=== PATIENT | male | born 1980 | race Caucasian/White ===

== ENCOUNTER → 2020-06-04 16:19 | Outpatient (CLI) | payer BC, SELFPAY | PROVIDERS: PCP Family Medicine; Referring Provider Family Medicine; Visit Provider Family Medicine | DX: Z20.828 Contact with and (suspected) exposure to other viral communicable diseases (principal) | CPT/HCPCS: 87635; U0003 ==

== ENCOUNTER → 2023-03-01 | Outpatient (CLI) | payer BC, SELFPAY ==
[2023-03-01 15:31] LABS: Absolute Neutrophil Count 2.8 X10^3/uL (2.0-7.7); Basophil# 0.05 X10^3/uL; Basophil% 1.2 % (0-1); Eosinophil# 0.08 X10^3/uL; Eosinophils% 1.9 % (0-5); Hematocrit 46.7 % (40-54); Hemoglobin 15.7 g/dL (13.0-16.5); Lymphocyte % 23.5 % (19-41); Mean Corp Hgb Conc 33.6 g/dL (32-36); Mean Corpuscular Hgb 27.7 pg (27.0-32.0); Mean Corpuscular Volume 82.4 fL (80-94); Mean Platelet Vol. 9.8 fl (6.2-12.0); Monocyte# 0.35 X10^3/uL; Monocyte% 8.2 % (0-10); NRBC Flagged by Analyzer 0 % (0-5); Neutrophil # 2.76 X10^3/uL (2.7-7.7); Platelet Count 222 K/mm3 (150-450); RBC Distribution Width CV 12.6 % (11.6-14.6); RBC Distribution Width SD 37.5 fl (35.1-43.9); Red Blood Count 5.67 M/mm3 (4.6-6.2); White Blood Count 4.3 K/mm3 (4.4-11.0)
[2023-03-01 15:54] LABS: Hemoglobin A1c 5.3 % (3.8-5.6)
[2023-03-01 16:15] LABS: ALB/GLOB Ratio 1.3 RATIO (0.9-2.4); AST(SGOT) 21 U/L (15-37); Alanine Aminotransfer ALT/SGPT 39 U/L (16-61); Albumin, Serum 4.3 g/dL (3.2-5.0); Alkaline Phosphatase 73 U/L (45-117); Anion Gap 4 (5-15); BUN 10 mg/dL (7-18); BUN/Creat Ratio 8.4 RATIO (10-20); Calcium,Total 9.3 mg/dL (8.5-10.1); Chloride 104 mmol/L (98-107); Cholesterol 263 mg/dL (200); Creatinine, Serum 1.19 mg/dL (0.70-1.30); EST Glomerular Filtration Rate 71 mL/min (>60); Est Glom Filt Rate - Afr Amer 86 mL/min (>60); Globulin 3.3 g/dL (2.2-4.2); Glucose 97 mg/dL (74-106); High Density Lipoprotein 48 mg/dL; PSA,Total - Annual Screen 0.74 ng/mL (0.00-4.00); Potassium 4.8 mmol/L (3.5-5.1); Protein, Total 7.6 g/dL (6.4-8.2); Sodium Level 138 mmol/L (136-145); Thyroid Stim Hormone (TSH) 3.33 uIU/mL (0.358-3.74); Triglycerides 180 mg/dL; Very Low Density Lipoprotein 36 mg/dL (5-40)
== END | disposition home or self-care (01) ==
PROVIDERS: PCP Family Medicine; Referring Provider Family Medicine; Visit Provider Family Medicine
DX: Z13.0 Encounter for screening for diseases of the blood and blood-forming organs and certain disorders involving the immune mechanism (principal); N52.9 Male erectile dysfunction, unspecified; Z13.1 Encounter for screening for diabetes mellitus; Z13.29 Encounter for screening for other suspected endocrine disorder; Z13.220 Encounter for screening for lipoid disorders
CPT/HCPCS: 36415; 80053; 80061; 83036; 84153; 84443; 85025; G0103

== ENCOUNTER → 2024-03-26 | Outpatient (CLI) | payer BC, SELFPAY ==
[2024-03-26 10:28] LABS: Basophil# 0.05 X10^3/uL; Basophil% 1.4 % (0-1); Eosinophil# 0.08 X10^3/uL; Eosinophils% 2.3 % (0-5); Hematocrit 44.1 % (40-54); Hemoglobin 14.7 g/dL (13.0-16.5); Lymphocyte % 28.6 % (19-41); Mean Corp Hgb Conc 33.3 g/dL (32-36); Mean Corpuscular Hgb 27.8 pg (27.0-32.0); Mean Corpuscular Volume 83.4 fL (80-94); Mean Platelet Vol. 10.3 fl (6.2-12.0); Monocyte# 0.41 X10^3/uL; Monocyte% 11.7 % (0-10); NRBC Flagged by Analyzer 0 % (0-5); Neutrophil # 1.95 X10^3/uL (2.7-7.7); Neutrophil % 55.7 % (47-70); Platelet Count 210 K/mm3 (150-450); RBC Distribution Width CV 12.7 % (11.6-14.6); RBC Distribution Width SD 38.5 fl (35.1-43.9); Red Blood Count 5.29 M/mm3 (4.6-6.2); White Blood Count 3.5 K/mm3 (4.4-11.0)
[2024-03-26 10:56] LABS: ALB/GLOB Ratio 1.4 RATIO (0.9-2.4); AST(SGOT) 28 U/L (15-37); Alanine Aminotransfer ALT/SGPT 39 U/L (16-61); Albumin, Serum 4.2 g/dL (3.2-5.0); Alkaline Phosphatase 70 U/L (45-117); Anion Gap 4 (5-15); BUN 20 mg/dL (7-18); BUN/Creat Ratio 16.4 RATIO (10-20); Calcium,Total 9.3 mg/dL (8.5-10.1); Chloride 103 mmol/L (98-107); Cholesterol 152 mg/dL (200); Creatinine, Serum 1.22 mg/dL (0.70-1.30); EST Glomerular Filtration Rate 69 mL/min (>60); Est Glom Filt Rate - Afr Amer 83 mL/min (>60); Glucose 104 mg/dL (74-106); High Density Lipoprotein 45 mg/dL; Potassium 4.6 mmol/L (3.5-5.1); Protein, Total 7.2 g/dL (6.4-8.2); Sodium Level 136 mmol/L (136-145); Triglycerides 115 mg/dL; Very Low Density Lipoprotein 23 mg/dL (5-40)
== END | disposition home or self-care (01) ==
LOC: MTLAB 07:13
PROVIDERS: PCP Family Medicine; Referring Provider Family Medicine; Visit Provider Family Medicine
DX: Z00.00 Encounter for general adult medical examination without abnormal findings (principal); Z13.1 Encounter for screening for diabetes mellitus; Z13.220 Encounter for screening for lipoid disorders
CPT/HCPCS: 36415; 80053; 80061; 85025

== ENCOUNTER 2024-05-01 09:30 | Outpatient (RCR) | payer BC, SELFPAY ==
--- NOTE | 2024-03-23 11:20 | HP.PTEVAL ---
Patient's Visit Information Visit Information Visit Information: DAVID BURNETT is a 43 year old M referred to Physical Therapy by Meet Vaughan MD with a diagnosis of L shoulder pain. Date of Evaluation: 03/23/24 Physical Therapist: YAMIL Chaudhary Visit Plan Frequency: 2x /Week Duration: 4 Weeks Plan: 2X/ week for 4 weeks for scapular strength, postural exercises, mobs to help with anterior tightness, RC strength with HEP Stretch pec/lat, Prone ROWS, T's and Y's, ER/IR HEP: blue mid rows Subjective Subjective: It started awhile ago and it started at Triceps area and now it is on the top of the shoulder. Last Tuesday was the worst. It did not bother him too much this past week. He can lay on that side but he can feel it. He can still lift but he can feel it on all shoulder exercises. His shoulder feels tight and he has pain with all motions. He has a desk job. He has no neck pain. He is right handed. His strength is better but still not the best. Pain L shoulder pain: Pain Intensity (Out of 10): 2 Objective Objective: R handed [employer] Strength R 110# and L 80# Shoulder AROM: R shoulder flex full but pain on the L side coming back down R shoulder ABD Full AROM and L 145 MMT: R shoulder flex 11.8 and L 9.5 R shoulder ABD 11.5 and L 11.1 R ER 16 and L 19.9 R IR 14,2 and L 15.5 posterior mobs caused some anterior shoulder discomfort Palpation: tender under the L acromion and bicep groove Posture: protracted shoulders. Balance/Special Test Scores Quick DASH Score: 22.7250 Goals Goal 1:: I HEP Goal Time Frame: 8-12 Weeks Goal 2:: Increase L shoulder elevation to full ROM without pain Goal Time Frame: 8-12 Weeks Goal 3:: Sit with more retracted shoulder posture Goal Time Frame: 8-12 Weeks Goal 4:: Be able to use his L arm without pain Goal Time Frame: 8-12 Weeks Rehabilitation Potential Rehabilitation Potential: Good Anticipated Interventions Patient/Client Instruction: Educate patient on: Condition and Plan of Care For the Purpose of:: To decrease pain, To decrease swelling/inflammation, To increase ROM, To improve nutrient delivery to tissue, To improve muscle performance and motor function, To improve ability to perform ADL's, To increase tolerance to activity/condition/position, To improve performance and independence with ADL's, To improve ability of physical actions for home/community/work/leisure, To improve gait and locomotor functions, To improve health of tissue, To decrease soft tissue restriction and To increase flexibility/ROM Therapeutic Exercise to Include: Strength training, Endurance training, Postural training, Flexibilty training, Neuromotor development, Passive ROM, Active ROM and Scapular Strength/Stabilization For the Purpose of:: To decrease pain, To increase ROM, To improve nutrient delivery to tissue, To increase oxygenation perfusion, To improve muscle performance and motor function, To improve ability to perform ADL's, To increase tolerance to activity/condition/position, To improve performance and independence with ADL's, To decrease level of supervision to perform tasks, To improve ability of physical actions for home/community/work/leisure, To improve gait and locomotor functions, To improve health of tissue, To decrease soft tissue restriction, To increase flexibility/ROM and To improve endurance Manual Therapy Techniques to Include: Mobilization and Passive ROM For the Purpose of:: To decrease pain, To increase ROM, To improve nutrient delivery to tissue, To improve muscle performance and motor function, To improve ability to perform ADL's, To increase tolerance to activity/condition/position, To improve performance and independence with ADL's, To decrease level of supervision to perform tasks, To improve health of tissue, To decrease soft tissue restriction and To increase flexibility/ROM Text: Thank you for the opportunity to evaluate your patient. For Medicare and Medicare HMO plans, please review the plan of care and approve it. It will need to be FAXED BACK to us at [phone] for Medicare purposes. For Medicare only, by signing this I certify the plan of care. Please let me know if there are questions or concerns regarding this plan of care. Physician Signature: Date:
--- NOTE | 2024-05-01 09:55 | HP.PTDCSUM ---
Discharge Summary D/C summary: It has been my pleasure to treat DAVID BURNETT referred by Meet Vaughan MD, with the diagnosis of L shoulder pain for a total of 9 visit(s). Discharge Date: 05/01/24 Please see the following information for a summary of their discharge status. Subjective Subjective: Pt reports that his pain depends on movements. He wants to get the MRI so he knows what is going on. Somedays he does not have a lot of pain. Reaching behind his back is the worst and still feels it overhead. He feels like his pain was better for a little while. He has no neck pain. He sometimes has night pain when he sleeps. He is incorporating these exercises into his workout routine Pain L shoulder pain: Pain Intensity (Out of 10): 0 Overall Improvement % Improvement: 25 Objective Objective/Function: Shoulder AROM: L flexion full but pain at end range L ABD approx 165 with pain at end range WFL ER/ IR with pain at end ranges. Goals Goal 1:: I HEP Goal Progress: Goal Met Goal 2:: Increase L shoulder elevation to full ROM without pain Goal Progress: Progressing Goal 3:: Sit with more retracted shoulder posture Goal Progress: Goal Met Goal 4:: Be able to use his L arm without pain Goal Progress: Progressing Plan Plan: DC PT to home program. Recommend MRI to see what is going on. Descent ROM but pain at end range. D/C Information Discharge Comments: DC PT to HEP d/c sentence: If there are questions or concerns regarding this patient's physical therapy, please feel free to call me at [phone]. Thank you for the referral of this patient. Sincerely, Sabrina Martinez, MPT Balance/Gait/Functional tests Balance/Special Test Scores Quick DASH Score: 34.0900 Improvement % Improvement: 25
--- NOTE | 2024-05-01 09:58 | HP.PTREVAL_ITS ---
Re-Evaluation Intro: Meet Vaughan MD, It has been my pleasure to treat DAVID BURNETT over the last 9 visits for L shoulder pain. Please see the progress note below for an update on the physical therapy plan of care! Subjective Subjective: Pt reports that his pain depends on movements. He wants to get the MRI so he knows what is going on. Somedays he does not have a lot of pain. Reaching behind his back is the worst and still feels it overhead. He feels like his pain was better for a little while. He has no neck pain. He sometimes has night pain when he sleeps. He is incorporating these exercises into his workout routine Objective Objective/Function: Shoulder AROM: L flexion full but pain at end range L ABD approx 165 with pain at end range WFL ER/ IR with pain at end ranges. Plan Plan Plan: DC PT to home program. Recommend MRI to see what is going on. Descent ROM but pain at end range. Balance/Gait/Functional tests Balance/Special Test Scores Quick DASH Score: 34.0900 Goals Goals Goal 1:: I HEP Goal Time Frame: 8-12 Weeks Goal Progress: Goal Met Goal 2:: Increase L shoulder elevation to full ROM without pain Goal Time Frame: 8-12 Weeks Goal Progress: Progressing Goal 3:: Sit with more retracted shoulder posture Goal Time Frame: 8-12 Weeks Goal Progress: Goal Met Goal 4:: Be able to use his L arm without pain Goal Time Frame: 8-12 Weeks Goal Progress: Progressing Anticipated Interventions Anticipated Interventions Patient/Client Instruction: Educate patient on: Condition and Plan of Care For the Purpose of:: To decrease pain, To decrease swelling/inflammation, To increase ROM, To improve nutrient delivery to tissue, To improve muscle performance and motor function, To improve ability to perform ADL's, To increase tolerance to activity/condition/position, To improve performance and ind ependence with ADL's, To improve ability of physical actions for home/community/work/leisure, To improve gait and locomotor functions, To improve health of tissue, To decrease soft tissue restriction and To increase flexibility/ROM Therapeutic Exercise to Include: Strength training, Endurance training, Postural training, Flexibilty training, Neuromotor development, Passive ROM, Active ROM and Scapular Strength/Stabilization For the Purpose of:: To decrease pain, To increase ROM, To improve nutrient delivery to tissue, To increase oxygenation perfusion, To improve muscle performance and motor function, To improve ability to perform ADL's, To increase tolerance to activity/condition/position, To improve performance and independence with ADL's, To decrease level of supervision to perform tasks, To improve ability of physical actions for home/community/work/leisure, To improve gait and locomotor functions, To improve health of tissue, To decrease soft tissue restriction, To increase flexibility/ROM and To improve endurance Manual Therapy Techniques to Include: Mobilization and Passive ROM For the Purpose of:: To decrease pain, To increase ROM, To improve nutrient delivery to tissue, To improve muscle performance and motor function, To improve ability to perform ADL's, To increase tolerance to activity/condition/position, To improve performance and independence with ADL's, To decrease level of supervision to perform tasks, To improve health of tissue, To decrease soft tissue restriction and To increase flexibility/ROM Re-Evaluation Ending Re-evaluation ending: Please do not hesitate to contact me at [phone] by phone or if you have questions or concerns regarding this new plan of care! Sincerely, Sabrina Martinez, MPT
== END 2024-05-01 19:00 | disposition home or self-care (01) ==
LOC: PT 09:30
PROVIDERS: PCP Family Medicine; Referring Provider Family Medicine; Visit Provider Family Medicine
DX: M25.512 Pain in left shoulder (principal)
CPT/HCPCS: 97110; 97161; 97530

== ENCOUNTER → 2024-05-23 | Outpatient (CLI) | payer BC, SELFPAY ==
--- NOTE | 2024-05-23 09:50 | MRI_ITS ---
STUDY: MRI LEFT SHOULDER REASON FOR EXAM: Male, 43 years old. Pain. TECHNIQUE: Standardized fat and water weighted pulse sequences were obtained in all 3 orthogonal planes. COMPARISON: None. FINDINGS: Normal supraspinatus tendon. Normal infraspinatus tendon. Normal subscapularis tendon. Normal teres minor tendon. Normal supraspinatus muscle. Normal infraspinatus muscle. Normal subscapularis muscle. Normal teres minor muscle. Normal glenohumeral articulation. Normal humeral head and visualized proximal humerus. Normal biceps labral complex. Normal intracapsular long biceps tendon. Normal labrum. Normal capsulo-ligamentous complex. Normal rotator interval. 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 There is a Type II morphology (curved), with a neutral orientation. There is no subacromial-subdeltoid bursal fluid. Normal visualized coracohumeral and coracoacromial ligaments. Normal quadrilateral space. Normal axillary space. Normal deltoid muscle. Normal trapezius muscle. MRI/Upper Ext Joint Only(Routine) IMPRESSION: Active acromioclavicular arthrosis, with juxta-articular marrow edema and inferior osteophyte formation. No rotator cuff tear or discrete labral tear. Electronically Signed: Yunier Bustillo MD at 13:38 EDT ,
== END | disposition home or self-care (01) ==
LOC: MRI 09:49
PROVIDERS: PCP Family Medicine; Referring Provider Family Medicine; Visit Provider Family Medicine
DX: M25.512 Pain in left shoulder (principal)
CPT/HCPCS: 73221

== ENCOUNTER → 2025-03-22 | Outpatient (CLI) | payer BC, SELFPAY | END | disposition home or self-care (01) | LOC: MTLAB 13:07 | PROVIDERS: PCP Family Medicine; Referring Provider Family Medicine; Visit Provider Family Medicine | DX: Z20.2 Contact with and (suspected) exposure to infections with a predominantly sexual mode of transmission (principal) | CPT/HCPCS: 36415; 86695; 86696 ==

== ENCOUNTER → 2025-05-10 | Outpatient (CLI) | payer BC, SELFPAY ==
--- OUTSIDE RECORDS SUMMARY | 2025-05-10 06:21 | XMS RPT_ITS | CCD ---
Author Organization [facility] Care Team Providers Care Seafood And Service Meat Manager Name Role Phone Unavailable Primary Care Provider Unavailabl e Clement MICHELLE, Meet Primary Care Provider Clement MICHELLE, Meet Attending Provider Meet Vaughan MD Referring Provider Meet Vaughan Referring Unavailable Clement, Meet Attending Unavailable Clement, Chalon Primary Care Unavailable Clement, Chalon Referring Unavailable Clement, Theodoreon Attending Unavailable Clement, Chalon Primary Care Unavailable Clement, Theodoreon Referring Unavailable Clement, Theodoreon Attending Unavailable Clement, Chalon Primary Care Unavailable Clement, Chalon Referring Unavailable Omar King Attending Unavailable Clement, Chalon Primary Care Unavailable Medications Current Medications Medication Drug Class(es) Dates Sig (Normalized) Sig (Original) cyclobenzaprine hydrochloride 5 mg oral tablet (1 source) Muscle Relaxant Start: 10-20-2024 take 1 tablet by mouth three times daily as needed for muscle spasms Cyclobenzaprine 5 mg tablet Active 5 mg PO THREE TIMES A DAY as needed for muscle spasm 10 0 October 20, 2024 12:00am ibuprofen 600 mg oral tablet (2 sources) Nonsteroidal Anti-inflammatory Drug Start: 02-03-2014 take 1 tablet by mouth every six hours as needed ibuprofen 600 mg tablet Take 1 tablet by mouth every 6 hours as needed for Pain. 30 tablet 0 02/03/2014 Active omeprazole 10 mg delayed release oral capsule (1 source) Proton Pump Inhibitor Start: 06-25-2023 take 1 capsule by mouth once daily Omeprazole 10 mg capsule,delayed release(DR/EC) Active 10 mg PO DAILY June 25, 2023 1:00am pantoprazole 20 mg delayed release oral tablet (2 sources) Proton Pump Inhibitor take 1 tablet by mouth once daily pantoprazole 20 mg tablet Take 20 mg by mouth once daily. Active rosuvastatin calcium 10 mg oral tablet (1 source) HMG-CoA Reductase Inhibitor Start: 06-25-2023 take 1 tablet by mouth once daily Rosuvastatin (Crestor) 10 mg tablet Active 10 mg PO DAILY June 25, 2023 1:00am Completed/Discontinued Medications Medication Drug Class(es) Dates Sig (Normalized) Sig (Original) amoxicillin 500 mg oral capsule (1 source) Penicillin-class Antibacterial Start: 06-25-2023 End: 07-05-2023 take 1 capsule by mouth three times daily Amoxicillin 500 mg capsule Discontinued 500 mg PO THREE TIMES A DAY 30 10 0 June 25, 2023 1:00am July 04, 2023 1:00am July 05, 2023 1:05am Problems Active Problems Problem Classification Problem Date Documented Da te Episodic/Chronic Disorders of teeth and jaw (2 sources) Gingival disease; Translations: [Other specified disorders of gingiva and edentulous alveolar ridge] 06-25-2023 Episodic Immunizations and screening for infectious disease (4 sources) Patient encounter status; Translations: [Encounter for immunization] Onset: 03-28-2025 04-19-2024 Episodic Past or Other Problems Problem Classification Problem Date Documented Da te Episodic/Chronic Other non-traumatic joint disorders (1 source) Pain in left shoulder; Translations: [Pain in left shoulder] Onset: 06-14-2024 Episodic Results Test Name Value Interpretation Reference Range Facility [facility] 04-19-2025 CNOV Office Visit (PEDSWS ) DAVID BURNETT ([id number]) 1980 M Date Time Provider Department 04/19/25 4:00 PM NURSE EVER MASON During your visit today, we recorded the following information about you: Allergies As of Date: 04/19/2025 (No Known Allergies) Date Reviewed: 02/03/2014 Reviewed by: Randa Preston Ma - Fully Assessed Reason for Visit: Immunizations [194] Cmt: Flu vaccination Primary Visit Diagnosis:Need for influenza vaccination [Z23] Order(s):INFLUENZA VACCINE, PRSV FREE, AGE 6MO-64YR, TRIVALENT (AFLURIA, FLUARIX, FLULAVAL, FLUVIRIN, FLUZONE) [20457YNX] Order #: [id number] Prescriptions as of 04/19/2025 - pantoprazole 20 mg tablet Take 20 mg by mouth once daily. - ibuprofen 600 mg tablet Take 1 tablet by mouth every 6 hours as needed for Pain. Problem List As Of Date: 04/19/2025 (None) Encounter Status:Closed by BLANCHE QUESADA on 04/19/25 Normal [facility] HSV 1 AND 2 IgGon 03-24-2025 HSV 1 IgG Non-Reactive Normal Non Reactive [facility] Comment on above: Result Comment: Pl ease note reference interval change HSV-1 IgG testing performed using the [employer] HSV-1 IgG assay. Performed By: #### L 3400.1610 #### [facility] [address] [place], [address] HSV 2 IgG Non-Reactive Normal Non Reactive [facility] Comment on above: Result Comment: Pl ease note reference interval change Current guidelines and recommendations do not recommend routine screening for HSV-2 in asymptomatic individuals, including those that are . The detection of HSV-2 IgG antibodies in a single sample indicates previous exposure to HSV-2 but does not give information as to the site of HSV infection or the timing of exposure. The predictive value of positive and negative results depends on the population's prevalence and the pretest likelihood of HSV-2. HSV-2 IgG testing performed using the [employer] HSV-2 IgG assay. Performed at: [address] [id number] Tuber Helper: Bahman Aolnso PhD, Phone: [phone] Performed By: #### L [id number] #### [facility] [address] [place] [place], [address] Serum herpes simplex virus 2 antibody assay by immunoassay (units/volume)Ordered By: Meet Vaughan on 03-22-2025 HSV 2 Ab IA Qn (S) Non-Reactive Non Reactive [facility] Comment on above: Please note refere nce interval changeCurrent guidelines and recommendations do not recommendroutine screening for HSV-2 in asymptomatic individuals,including those that are . The detection of HSV-2IgG antibodies in a single sample indicates previousexposure to HSV-2 but does not give information as to thesite of HSV infection or the timing of exposure. Thepredictive value of positive and negative results dependson the population's prevalence and the pretest likelihoodof HSV-2. HSV-2 IgG testing performed using the [employer] HSV-2 IgG assay.Performed at: [address] [id number] Director: Bahman Alonso PhD, Phone: [phone] Urgent Care Visit Reporton 0 10-20-2024 Urgent Care Visit Report [facility] [address], [address] [place] [address] OFFICE VISIT Date of Service: 10/20/24 MR#: [id number] Acct: [id number] Name: DAVID BURNETT Rep #: [id number] : 1980 Provider: MARIELLE Will Age/Sex: 44/M Location: [facility] Status: Signed Intake Vital Signs 06/25/23 08:16 10/20/24 08:56 Height 6 ft 2 in 6 ft 2 in Weight: 234 lb 2 oz BMI 30.0 BP 124/82 H Position Sitting Pulse 74 Temp 98.9 F Temp Source Oral Pulse Oximetry (%) 96 Oxygen Delivery Method room air Intake Visit Reasons: R EAR/JAW PAIN/POS TOOTH PAIN Chief Complaint: TOOTH PAIN Accompanied by: Self Allergies No Known Allergies Allergy (Unverified 06/25/23 08:17) Nurse's Note: Patient has right ear pain and jaw pain. Patient saw a dentist on and he fixed a crack tooth. Patient is having pain with his neck. Patient states it under his jaw. 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 Patient states the pain in his jaw starts in the pre-auricular region and extends inferiorly along the distribution of the mandible and to right lateral neck. Patient describes the pain as a dull ache and notes mild discomfort with chewing and speaking. Patient states he was at the dentis on (2 days ago) for management of a cracked tooth on the right side of his mouth which was repaired and a temporary crown was placed. Patient denies fever, chills, gingival edema, or tooth pain. Patient has not utilized any treatment for this issue at this time. ROS Const Constitutional: No chills, fever(s) or headache(s) ENT ENT: Positive for ear or mastoid pain, facial pain and neck pain; No abnormal hearing, hearing loss, nasal congestion, sinus pressure, headache(s), lip swelling, mouth pain or sore throat Resp Respiratory: No cough, shortness of breath, stridor or wheezing Cardio Cardiology: No chest pain at rest, shortness of breath or irregular heart rhythm Musc Musculoskeletal: Positive for neck pain; No numbness Neuro Neurology: No abnormal hearing, confusion, dizziness, headache(s) or numbness Psych Psychiatric: No confusion Aller/Imm Allergy/Immunologic: No lip swelling or wheezing Exam Const General: cooperative, healthy appearing and no acute distress [facility] Head: normal to inspection and normocephalic Ears: hearing grossly normal bilaterally, external ears normal and TM's normal bilaterally Mouth: oral mucosae normal, lip normal, tongue normal, salivary ducts normal, oropharynx normal, moist mucous membranes and other (no edema inferior to tongue or signs of respiratory distress) Teeth and gingiva: dentition normal and gingiva normal Throat: posterior oropharynx normal Neck Neck: normal visual inspection, full ROM and no lymphadenopathy Neck mass: No Lymphatic: no lymphadenopathy noted Musc Other: Localized tenderness along the distribution of the right TMJ without crepitus or edema. Mild tenderness appreciated along the masseter muscle but no tenderness of the temporalis. Skin General: no rashes or lesions noted Neuro General: patient alert and patient awake Coding Level of Care Code Established Pt Off vis,est,level 3 Patient Type Established History Expanded Problem Focused Exam Problem Focused Medical Decision Making Low Complexity Diagnoses Right temporomandibular joint disorder, unspecified M26.601 Assessment and Plan Assessment and Plan (1) Right temporomandibular joint disorder, unspecified: Status: Acute Plan: Symptoms likely associated with recent dental procedure resulting in muscle strain from prolonged opening of the mouth. No signs of infection on exam therefore will initiate conservative care with warm compresses and OTC NSAIDs. Will also provide PRN cyclobenzaprine for symptom management and if minimal to no improvement or worsening f/u with PCP or back in the [facility] for reevaluation. Patient voiced understanding and agreement with plan. Medications: New cyclobenzaprine 5 mg PO TID PRN 10 tabs 0RF muscle spasm 10/20/24 0955 Date Omar Murphy Signature: Date (if applicable) CC: Normal [facility] Upper Ext Joint Only(Routine )on 05-23-2024 Upper Ext Joint Only(Routine) [facility] Imaging Services [address] [place] [address] Upper Ext Joint Only(Routine) MR#: [id number] Acct: [id number] Name: DAVID BURNETT Rep #: [id number] : 1980 M 43 From: Yunier Bustillo MD PCP: Dr. Meet Vaughan MD Status: REG CLI Study: Upper Ext Joint Only(Routine) Date of Exam: 1 Exam# [id number] Ordering Dr: Meet Vaughan MD [id number] STUDY: MRI LEFT SHOULDER REASON FOR EXAM: Male, 43 years old. Pain. TECHNIQUE: Standardized fat and water weighted pulse sequences were obtained in all 3 orthogonal planes. COMPARISON: None. FINDINGS: Normal supraspinatus tendon. Normal infraspinatus tendon. Normal subscapularis tendon. Normal teres minor tendon. Normal supraspinatus muscle. Normal infraspinatus muscle. Normal subscapularis muscle. Normal teres minor muscle. Normal glenohumeral articulation. Normal humeral head and visualized proximal humerus. Normal biceps labral complex. Normal intracapsular long biceps tendon. Normal labrum. Normal capsulo-ligamentous complex. Normal rotator interval. 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 There is a Type II morphology (curved), with a neutral orientation. There is no subacromial-subdeltoi d bursal fluid. Normal visualized coracohumeral and coracoacromial ligaments. Normal quadrilateral space. Normal axillary space. Normal deltoid muscle. Normal trapezius muscle. MRI/Upper Ext Joint Only(Routine) IMPRESSION: Active acromioclavicular arthrosis, with juxta-articular marrow edema and inferior osteophyte formation. No rotator cuff tear or discrete labral tear. Electronically Signed: Yunier Bustillo MD at 13:38 EDT Reading Location ID and State: [address] [place] [address] , Service support , CC: Dr. Meet Vaughan MD Slate Splitter: Signed Normal [facility] PT D/C Summary (1)on 024 PT D/C Summary (1) [facility] Physical Therapy Health[address] [place] [address] / REHABILITATION SERVICES DISCHARGE SUMMARY MR#: [id number] Acct: [id number] Name: DAVID BURNETT Rep #: [id number] : 1980 43 From: Sabrina LOBO Referring Dr.: Dr. Meet Vaughan MD Status: REG RCR Insurance: [employer]ANCE Discharge Summary D/C summary: It has been my pleasure to treat DAVID BURNETT referred by Meet Vaughan MD, with the diagnosis of L shoulder pain for a total of 9 visit(s). Discharge Date: 05/01/24 Please see the following information for a summary of their discharge status. Subjective Subjective: Pt reports that his pain depends on movements. He wants to get the MRI so he knows what is going on. Somedays he does not have a lot of pain. Reaching behind his back is the worst and still feels it overhead. He feels like his pain was better for a little while. He has no neck pain. He sometimes has night pain when he sleeps. He is incorporating these exercises into his workout routine Pain L shoulder pain: Pain Intensity (Out of 10): 0 Overall Improvement % Improvement: 25 Objective Objective/Function: Shoulder AROM: L flexion full but pain at end range L ABD approx 165 with pain at end range WFL ER/ IR with pain at end ranges. Goals Goal 1:: I HEP Goal Progress: Goal Met Goal 2:: Increase L shoulder elevation to full ROM without pain Goal Progress: Progressing Goal 3:: Sit with more retracted shoulder posture Goal Progress: Goal Met Goal 4:: Be able to use his L arm without pain Goal Progress: Progressing Plan Plan: DC PT to home program. Recommend MRI to see what is going on. Descent ROM but pain at end range. D/C Information Discharge Comments: DC PT to HEP d/c sentence: If there are questions or concerns regarding this patient's physical therapy, please feel free to call me at [phone]. Thank you for the referral of this patient. Sincerely, Sabrina Martinez, MPT Balance/Gait/Function al tests Balance/Special Test Scores Quick DASH Score: 34.0900 Improvement % Improvement: 25 05/01/24 0955 CC: Dr. Meet Vaughan MD Signed Normal [facility] Re-Evaluation - PT (1)on Re-Evaluation - PT (1) [facility] Physical Therapy Health[address] [place] [address] / REEVALUATION / MEDICARE RECERTIFICATION PHYSICAL THERAPY MR#: [id number] Acct: [id number] Name: DAVID BURNETT Rep #: [id number] : 1980 43 From: Sabrina Martinez MPT Referring Dr.: Dr. Meet Vaughan MD Status:REG RCR Insurance: [employer]ANCE Re-Evaluation Intro: Meet Vaughan MD, It has been my pleasure to treat DAVID BURNETT over the last 9 visits for L shoulder pain. Please see the progress note below for an update on the physical therapy plan of care! Subjective Subjective: Pt reports that his pain depends on movements. He wants to get the MRI so he knows what is going on. Somedays he does not have a lot of pain. Reaching behind his back is the worst and still feels it overhead. He feels like his pain was better for a little while. He has no neck pain. He sometimes has night pain when he sleeps. He is incorporating these exercises into his workout routine Objective Objective/Function: Shoulder AROM: L flexion full but pain at end range L ABD approx 165 with pain at end range WFL ER/ IR with pain at end ranges. Plan Plan Plan: DC PT to home program. Recommend MRI to see what is going on. Descent ROM but pain at end range. Balance/Gait/Function al tests Balance/Special Test Scores Quick DASH Score: 34.0900 Goals Goals Goal 1:: I HEP Goal Time Frame: 8-12 Weeks Goal Progress: Goal Met Goal 2:: Increase L shoulder elevation to full ROM without pain Goal Time Frame: 8-12 Weeks Goal Progress: Progressing Goal 3:: Sit with more retracted shoulder posture Goal Time Frame: 8-12 Weeks Goal Progress: Goal Met Goal 4:: Be able to use his L arm without pain Goal Time Frame: 8-12 Weeks Goal Progress: Progressing Anticipated Interventions Anticipated Interventions Patient/Client Instruction: Educate patient on: Condition and Plan of Care For the Purpose of:: To decrease pain, To decrease swelling/inflammation , To increase ROM, To improve nutrient delivery to tissue, To improve muscle performance and motor function, To improve ability to perform ADL's, To increase tolerance to activity/condition/po sition, To improve performance and independence with ADL's, To improve ability of physical actions for home/community/work/l eisure, To improve gait and locomotor functions, To improve health of tissue, To decrease soft tissue restriction and To increase flexibility/ROM Therapeutic Exercise to Include: Strength training, Endurance training, Postural training, Flexibilty training, Neuromotor development, Passive ROM, Active ROM and Scapular Strength/Stabilizatio n For the Purpose of:: To decrease pain, To increase ROM, To improve nutrient delivery to tissue, To increase oxygenation perfusion, To improve muscle performance and motor function, To improve ability to perform ADL's, To increase tolerance to activity/condition/po sition, To improve performance and independence with ADL's, To decrease level of supervision to perform tasks, To improve ability of physical actions for home/community/work/l eisure, To improve gait and locomotor functions, To improve health of tissue, To decrease soft tissue restriction, To increase flexibility/ROM and To improve endurance Manual Therapy Techniques to Include: Mobilization and Passive ROM For the Purpose of:: To decrease pain, To increase ROM, To improve nutrient delivery to tissue, To improve muscle performance and motor function, To improve ability to perform ADL's, To increase tolerance to activity/condition/po sition, To improve performance and independence with ADL's, To decrease level of supervision to perform tasks, To improve health of tissue, To decrease soft tissue restriction and To increase flexibility/ROM Re-Evaluation Ending Re-evaluation ending: Please do not hesitate to contact me at [phone] by phone or if you have questions or concerns regarding this new plan of care! Sincerely, Sabrina Martinez, MPT 05/01/24 0958 CC: Dr. Meet Vaughan MD Signed For Medicare only, by signing this I certify the plan of care. Physicians Signature Date Normal [facility] Absolute lymphocyte countOrd ered By: Nora Rome on 03-01-2023 Lymphocytes Auto (Unsp spec) [#/Vol] 1.00 10*3/uL 0.83-4.51 [facility] Basophil percentageOrdered B y: Nora Rome on 03-01-2023 Basophils/100 WBC (Bld) 1.2 % 0-1 [facility] Bilirubin [Mass/Vol] 0.80 mg/dL 0.20-1.00 [facility] Comment on above: For patients on eltr ombopag therapy, use of Dimension [place] TBIL is not recommended. Chloride [Moles/Vol] 104 mmol/L 98-107 [facility] Cholesterol [Mass/Vol] 263 mg/dL <200 [facility] Comment on above: <200 mg/dL Desirable 200-240 mg/dL Borderline >240 mg/dL High Risk Eosinophils/100 WBC (Bld) 1.9 % 0-5 [facility] Glucose [Mass/Vol] 97 mg/dL 74-106 [facility] Neutrophils (Bld) [#/Vol] 2.8 10*3/uL 2.0-7.7 [facility] Neutrophils/100 WBC (Bld) 65.0 % 47-70 [facility] Potassium [Moles/Vol] 4.8 mmol/L 3.5-5.1 [facility] Protein [Mass/Vol] 7.6 g/dL 6.4-8.2 [facility] Sodium [Moles/Vol] 138 mmol/L 136-145 [facility] Triglyceride [Mass/Vol] 180 mg/dL <199 [facility] Comment on above: The drugs N-Acetylcy steine and Metamizole may falsely depress this assay.Serum Triglycerides Reference Interval Normal <150 mg/dL Borderline high 150 - 199 mg/dL High 200 - 499 mg/dL Very High > or = 500 mg/dL WBC (Bld) [#/Vol] 4.3 10*3/uL 4.4-11.0 [facility] Blood erythrocytes count (nu mber/volume)Ordered By: Nora Rome on 03-01-2023 RBC (Bld) [#/Vol] 5.67 10*6/uL 4.6-6.2 [facility] Blood hemoglobin measurement (mass/volume)Ordered By: Nora Rome on 03-01-2023 Hemoglobin (Bld) [Mass/Vol] 15.7 g/dL 13.0-16.5 [facility] Blood lymphocytes/100 leukoc ytesOrdered By: Nora Rome on 03-01-2023 Lymphocytes/100 WBC (Bld) 23.5 % 19-41 [facility] Blood monocytes/100 leukocyt esOrdered By: Nora Rome on 03-01-2023 Monocytes/100 WBC (Bld) 8.2 % 0-10 [facility] Blood platelet mean volumeOr dered By: Nora Rome on 03-01-2023 Platelet mean volume (Bld) [Entitic vol] 9.8 fL 6.2-12.0 [facility] Determination of erythrocyte mean corpuscular volume (MCV)Ordered By: Nora Rome on 03-01-2023 MCV (RBC) [Entitic vol] 82.4 fL 80-94 [facility] Hematocrit Auto (Bld) [Volum e fraction]Ordered By: Nora Rome on 03-01-2023 Hematocrit (Bld) [Volume fraction] 46.7 % 40-54 [facility] Laboratory - Chemistry and C hemistry - challengeOrdered By: Nora Rome on 03-01-2023 ALP [Catalytic activity/Vol] 73 U/L 45-117 [facility] ALT [Catalytic activity/Vol] 39 U/L 16-61 [facility] CO2 [Moles/Vol] 30.0 mmol/L 21.0-32.0 [facility] Globulin (S) [Mass/Vol] 3.3 g/dL 2.2-4.2 [facility] Urea nitrogen/Creatinine [Mass ratio] 8.4 mg/mg 10-20 [facility] Laboratory - Hematology and Cell countsOrdered By: Nora Rome on 03-01-2023 Erythrocyte distribution width (RBC) [Entitic vol] 37.5 fL 35.1-43.9 [facility] Erythrocyte distribution width (RBC) [Ratio] 12.6 % 11.6-14.6 [facility] Immature granulocytes/100 WBC (Bld) 0.200 % 0.0-0.9 [facility] Comment on above: IG% - Immature Granu locytes (promyelocytes, myelocytes and metamyelocytes) > 1% indicates that a LEFT SHIFT is Present. MCH (RBC) [Entitic mass] 27.7 pg 27.0-32.0 [facility] Nucleated RBC/100 WBC (Bld) [Ratio] 0 % 0-5 [facility] MCHC Auto (RBC) [Mass/Vol]Or dered By: Nora Rome on 03-01-2023 MCHC (RBC) [Mass/Vol] 33.6 g/dL 32-36 [facility] No Panel InformationOrdered By: Nora Rome on 03-01-2023 Estimated GFR (MDRD) Amer 86 mL/min >60 [facility] Comment on above: GFR Calc Estimated GFR (MDRD) Non-Af Amer 71 mL/min >60 [facility] Comment on above: Non- GFR Calc Prostate Specific Antigen Screen 0.74 ng/mL 0.00-4.00 [facility] Comment on above: This test was perfor med using the TPSA assay method for the[employer] chemistry system. Values obtained with differentassay methods cannot be used interchangably.When changing PSA assays in the course of monitoring apatient, additional sequential testing should be carriedout to confirm baseline values. Thyroid Stimulating Hormone (TSH) 3.33 uIU/mL 0.358-3.74 [facility] Platelets bldOrdered By: Mandeep Rome on 03-01-2023 Platelets (Bld) [#/Vol] 222 10*3/uL 150-450 [facility] Serum or plasma albumin elidia urement (mass/volume)Ordered By: Nora Rome on 03-01-2023 Albumin [Mass/Vol] 4.3 g/dL 3.2-5.0 [facility] Serum or plasma albumin/glob ulin mass ratioOrdered By: Nora Rome on 03-01-2023 Albumin/Globulin [Mass ratio] 1.3 {ratio} 0.9-2.4 [facility] Serum or plasma calcium elidia urement (mass/volume)Ordered By: Nora Rome on 03-01-2023 Calcium [Mass/Vol] 9.3 mg/dL 8.5-10.1 [facility] Serum or plasma cholesterol in HDL measurement (mass/volume)Ordered By: Nora Rome on 03-01-2023 Cholesterol in HDL [Mass/Vol] 48 mg/dL >40 [facility] Comment on above: The drugs N-Acetylcy steine and Metamizole may falsely depress this assay. Reference Range HDL <40 mg/dL Low HDL Cholesterol HDL >or= 60 mg/dL High HDL Cholesterol Serum or plasma cholesterol in VLDL measurement (mass/volume)Ordered By: Nora Rome on 03-01-2023 Cholesterol in VLDL [Mass/Vol] 36 mg/dL 5-40 [facility] Serum or plasma creatinine m easurement (mass/volume)Ordered By: Nora Rome on 03-01-2023 Creatinine [Mass/Vol] 1.19 mg/dL 0.70-1.30 [facility] Comment on above: The validity of the calculated GFR & GFRAA in patients over 70 years has not been determined. Clinical correlation is essential. Serum or plasma low density lipoprotein (LDL) cholesterol measurement (mass/volume)Ordered By: Nora Rome on 03-01-2023 Cholesterol in LDL [Mass/Vol] 179 mg/dL 0-130 [facility] Serum or plasma urea nitroge n measurement (mass/volume)Ordered By: Nora Rome on 03-01-2023 Urea nitrogen [Mass/Vol] 10 mg/dL 7-18 [facility] Thin prep Papanicolaou smear with manual screeningOrdered By: Nora Rome on 03-01-2023 Thin prep Papanicolaou smear with manual screening 21 U/L 15-37 [facility] Thin prep Papanicolaou smear with manual screening 4 5-15 [facility] Whole blood hemoglobin A1c/t otal hemoglobin ratio (mass fraction)Ordered By: Nora Rome on 03-01-2023 HbA1c (Bld) [Mass fraction] 5.3 % 3.8-5.6 [facility] Comment on above: Normal < 5.7 % Predi abetic 5.7 - 6.4 % Diabetic >or= 6.5 % Please note range changes. Encounters Encounter Date Encounter Type Care Provider Facility Start: 04-19-2025 End: 04-19-2025 Patient encounter procedure [facility] [place] Comment on above: Need for influenza v accination (Primary Dx) Start: 04-19-2025 End: 04-19-2025 ambulatory Facility:[facility] Start: 03-22-2025 End: 03-22-2025 ambulatory Meet Vaughan MD Work Phone: [facility] [place] Start: 03-22-2025 End: 03-22-[address] Meet Vaughan MD [facility] [place] Work Phone: Start: 03-22-2025 End: 03-22-2025 ambulatory Chalon Clement Facility:[facility] Start: 10-20-2024 End: 10-20-2024 ambulatory Chalon Clement [facility] Start: 05-23-2024 End: 05-23-2024 ambulatory Chalon Clement Facility:[facility] Start: 05-01-2024 End: 05-01-2024 ambulatory [facility] Facility:[facility] Start: 04-19-2024 End: 04-19-2024 Patient encounter procedure Nurse [facility]eds [facility] Comment on above: Encounter for immuni zation (Primary Dx) Start: 03-01-2023 End: 03-01-2023 ambulatory [facility] Work Phone: Start: 03-01-2023 End: 03-01-2023 Patient encounter procedure [facility] [place] Work Phone: Procedures Date Procedure Procedure Detail Performing Clinician Start: 03-22-2025 Serologic test for h erpes simplex Meet Vaughan MD Work Phone: Comment on above: Please note refere nce interval changeHSV-1 IgG testing performed using the G[employer] HSV-1IgG assay. Plan of Treatment Date Care Activity Detail Author Start: 10-11-2026 Urine microalbumin profile DTa P,Tdap,Td Vaccine (2 - Td or Tdap) [facility] Start: 04-08-2024 Covid-19 Vaccine () Covid-19 Vaccine () [facility] Start: 2015 Lipid panel Lipid Screening [facility] Start: 2007 HPV Vaccine (1 - 3-d ose SCDM series) HPV Vaccine (1 - 3-dose SCDM series) [facility] Start: 1998 Anxiety Screening Anxiety Screening [facility] Start: 1998 Depression Screening Depression Scre aditya [facility] Start: 1998 Hepatitis C screening Hepatitis C Sc bijan [facility] Start: 1998 HIV screening HIV Screening [facility] Immunizations Immunization Date Immunization Notes Care Provider Fa cility 04-19-2025 influenza, seasonal, injectable, preservative free Nurse [facility] 04-19-2024 influenza, seasonal, injectable Nurse [facility] 06-03-2023 influenza, injectabl e, quadrivalent, contains preservative Nurse [facility] 06-16-2022 influenza, injectabl e, quadrivalent, contains preservative Nurse [facility] 04-17-2021 influenza, injectabl e, quadrivalent, contains preservative Nurse [facility] 07-16-2019 influenza, injectabl e, quadrivalent, contains preservative Nurse [facility] Payers Date Payer Category Payer Self-pay [id number] [id number] 2012 [facility] [employer]RES FEP PPO [id number] 2012 Unknown [employer] THOMPSON BS FEP PPO [id number] 2012-Present [phone] [id number] [place] [address] O [id number] 2012 Unknown [id number] Unknown [id number] Unknown [id number] Unknown [id number] Unknown [id number] Social History Date Type Detail Facility [facility] Work Phone: Start: 1980 Sex Assigned At Male [facility] Start: 02-03-2014 [facility] Never smoked tobacco [facility] Start: 02-03-2014 Alcoholic beverage intake Not Asked [facility] Start: 2020 History of Social function [facility] Start: 2020 Area Deprivation Index [facility] Start: 07-09-2012 National Score (1-10 0), lower number is lower risk Not on file [facility] Start: 1980 Sex assigned at Not on file [facility] if ever smoked [facility] Work Phone: Functional Status Date Assessment Result Facility 02-03-2014 Are you deaf, or do you have serious difficulty hearing No 02/03/2014 10:06 AM Randa Batista MA No [facility] 02-03-2014 Are you blind, or do you have serious difficulty seeing, even when wearing glasses No 02/03/2014 10:06 AM Randa Batista MA No [facility] 02-03-2014 Do you have serious difficulty walking or climbing stairs No 02/03/2014 10:06 AM Randa Batista MA No [facility] 02-03-2014 Do you have difficul ty dressing or bathing No 02/03/2014 10:06 AM Randa Baitsta MA No [facility] 02-03-2014 Because of a physica l, mental, or emotional condition, do you have difficulty doing errands alone such as visiting a physician's office or shopping No 02/03/2014 10:06 AM EDT Randa Preston MA No [facility] Mental Status Date Assessment Result Facility 02-03-2014 Because of a physica l, mental, or emotional condition, do you have serious difficulty concentrating, remembering, or making decisions No 02/03/2014 10:06 AM EDT Randa Preston MA No [facility] Evaluation note Note Date & Type Note Facility Evaluation note No assessment information availa ble [facility] Work Phone: Evaluation note Note Date & Type Note Facility Evaluation note Diagnosis Encounter for immunization- Primary Need for other specified prophylactic vaccination against single bacterial disease documented in this encounter [facility] Evaluation note Note Date & Type Note Facility Evaluation note Diagnosis Need for influenza vaccination- Primary Need for prophylactic vaccination and inoculation against influenza documented in this encounter [facility] Reason for referral (narrative) Note Date & Type Note Facility Reason for referral (narrative) No reason for referral information available [facility] Work Phone: Chief Complaint and Reason for Visit Chief Complaint EORDER Chief Complaint Admit Date EORDER March 22, 2025 1: 06pm Summary Purpose Family History No Family History Records FoundNo Family History Records Found Advance Directives No Advanced Directives Records FoundNo Advanced Directives Records Found Additional Source Comments Care Teams (unrecognized sec tion and content) Team Status: Active Member Role Status Dates Dr. Osman Farmer MD Family Provider Active Nora Rome DO Primary Care Provider Active Team Status: Inactive Member Role Status Dates Nora Rome DO Primary Care Provi brynn, Attending Provider, Referring Provider Active Team Status: Active Member Role/Relationship Status Dates Dr. Osman Farmer MD Family Provider Active Meet Vaughan MD Primary Care Provider Active Team Status: Inactive Member Role/Relationship Status Dates Meet Vaughan MD Primary Care Provider Active St art: March 22, 2025 End: March 22, 2025 Meet Vaughan MD Attending Provider Active Start : March 22, 2025 End: March 22, 2025 Meet Vaughan MD Referring Provider Active Start : March 22, 2025 End: March 22, 2025 Goals (unrecognized section and content) Goals may be documented in a n alternate sectionGoals may be documented in an alternate section Source Comments (unrecognize d section and content) In the event this informatio n is protected by the Federal Confidentiality of Alcohol and Drug Abuse Patient Records regulations: The Federal rules restrict any use of the information to criminally investigate or prosecute any alcohol or drug abuse patient.[facility] the event this information is protected by the Federal Confidentiality of Alcohol and Drug Abuse Patient Records regulations: The Federal rules restrict any use of the information to criminally investigate or prosecute any alcohol or drug abuse patient.[facility] (unrecognized sect ion and content) No Status Records FoundNo Status Records Found INFORMATION SOURCE (unrecogn ized section and content) DATE CREATED AUTHOR 03/30/2025 [facility] DATE CREATED AUTHOR AUTHOR'S ORGANIZ ATION 04/24/2025 [facility] Reason for Visit (unrecogniz ed section and content) Reason Onset Date Comments Immunizations 04/19/2025 Flu vaccination FOR RECORDS PERTAINING TO PATIENTS WHO ARE OR HAVE BEEN ENROLLED IN A CHEMICAL DEPENDENCY/SUBSTANCEABUSE PROGRAM, SOME INFORMATION MAY BE OMITTED. This clinical summary was aggregated from multiple sources. Caution should be exercised in using it in the provision of clinical care. This summary normalizes information from multiple sources, and as a consequence, information in this document may materially change the coding, format and clinical context of patient data. In addition, data may be omitted in some cases. CLINICAL DECISIONS SHOULD BE BASED ON THE PRIMARY CLINICAL RECORDS. [employer] [facility]. provides no warranty or guarantee of the accuracy or completeness of information in this document.
[2025-05-10 07:13] LABS: Hematocrit 45.6 % (40-54); Hemoglobin 15.7 g/dL (13.0-16.5); Mean Corp Hgb Conc 34.4 g/dL (32-36); Mean Corpuscular Volume 81.1 fL (80-94); Mean Platelet Vol. 9.2 fl (6.2-12.0); Platelet Count 231 K/mm3 (150-450); RBC Distribution Width CV 12.2 % (11.6-14.6); RBC Distribution Width SD 36.1 fl (35.1-43.9); Red Blood Count 5.62 M/mm3 (4.6-6.2); White Blood Count 4.5 K/mm3 (4.4-11.0)
[2025-05-10 07:59] LABS: AST(SGOT) 35 U/L (<=37); Alanine Aminotransfer ALT/SGPT 65 U/L (<=46); Albumin, Serum 4.5 g/dL (3.5-5.0); Alkaline Phosphatase 78 U/L (40-129); Anion Gap 12 (5-15); BUN 15 mg/dL (4-19); BUN/Creat Ratio 12.4 RATIO (10-20); Calcium,Total 9.4 mg/dL (7.6-11.0); Carbon Dioxide 26.8 mmol/L (21.0-32.0); Chloride 100 mmol/L (98-108); Cholesterol 142 mg/dL (<=200); Globulin 2.4 g/dL (2.2-4.2); Glucose 106 mg/dL (70-99); Low Density Lipoprotein Calc. 80 mg/dL; Potassium 4.4 mmol/L (3.3-5.1); Triglycerides 92 mg/dL; Very Low Density Lipoprotein 18 mg/dL (5-40); Vitamin D,25 Hydroxy 24.0 ng/mL (30-100); cholesterol:hdl ratio screen 3.26
== END | disposition home or self-care (01) ==
PROVIDERS: PCP Family Medicine; Referring Provider Family Medicine; Visit Provider Family Medicine
DX: Z00.00 Encounter for general adult medical examination without abnormal findings (principal); Z13.1 Encounter for screening for diabetes mellitus; E78.00 Pure hypercholesterolemia, unspecified
CPT/HCPCS: 36415; 80053; 80061; 82306; 85027